=== PATIENT | female | born 1995 | race Caucasian/White ===

== ENCOUNTER 2016-04-13 03:03 | Emergency (ER) | payer OTHER ==
[~2016-04-13] VITALS: Ht 167.6 cm; Wt 65.9 kg
[2016-04-13 03:20] VITALS: Ht 167.6 cm; Wt 65.9 kg
[2016-04-13] MEDS ORDERED: LORAZEPAM 1 MG TAB PO ONE (03:30)
--- NOTE | 2016-04-13 03:30 | ERD ---
ER Documentation Chief Complaint Date/Time DATE: 04/13/16 TIME: 03:29 Chief Complaint brought in by ambulance for etoh. aox4 upon triage HPI 20-year-old woman brought in by EMS for intoxication while in an [employer] car. Patient had some nausea and vomiting while in the vehicle and admitted to drinking alcohol tonight. She denies alcoholism although states she does have a history of anxiety and depression and uses Paxil daily. She denies suicidal homicidal ideation. She denies fevers or chills, no chest pain or shortness of breath. Patient was transported here by EMS without further complications. ROS All systems reviewed and are negative except as per history of present illness. Allergies Allergies: Coded Allergies: No Known Allergies (Verified Allergy, Mild, 03/18/10) PMhx/Soc History of Surgery: No Anesthesia Reaction: No Hx Neurological Disorder: No Hx Respiratory Disorders: No Hx Cardiac Disorders: No Hx Psychiatric Problems: No Hx Miscellaneous Medical Probl: No Hx Alcohol Use: No Hx Substance Use: No Hx Tobacco Use: No Smoking Status: Never smoker FmHx Family History: No diabetes Physical Exam Vitals Vital Signs Date Time Temp Pulse Resp B/P Pulse Ox O2 Delivery O2 Flow Rate FiO2 04/13/16 03:20 97.8 85 16 119/79 98 Physical Exam GENERAL: Well-developed, well-nourished, appears intoxicated and anxious HEENT: Moist mucous membranes, pink conjunctiva, no cervical spine tenderness or step-off deformities, no goiter, no jaundice or icterus, extraocular movements intact without pain. No submandibular induration, and no pharyngeal erythema NEURO: Alert and oriented 3, cranial nerves II through XII intact bilaterally, pupils equal round reactive to light, no focal deficits or facial asymmetry, sensation intact distally Strength 5/5 in upper and lower extremities bilaterally CARDIAC: Regular rate and rhythm, no murmurs rubs or gallops LUNGS: Clear bilaterally no wheezing crackles or stridor ABDOMEN: Soft nontender, no guarding, no rigidity, no rebound, no psoas sign no obturator sign. Normoactive bowel sounds SKIN: Warm and dry to touch, no abrasions, contusions, or hematomas, no lacerations, no ecchymosis, no target lesions, and without ulcers EXTREMITIES: No clubbing cyanosis or edema, calves are bilaterally symmetrical, no Homans sign, no popliteal cord sign. Distal pulses equal and bilateral PSYCH: Anxious Results 24 hrs Current Medications Medications (Trade) Dose Ordered Sig/Sergio Route PRN Reason Start Time Stop Time Status Last Admin Dose Admin Lorazepam (Ativan) 1 mg ONCE ONCE PO 04/13/16 03:30 04/13/16 03:31 DC 04/13/16 03:32 Procedures/MDM I administered lorazepam 1 mg p.o. for her symptoms. She felt much better. Differential diagnoses considered, included but not limited to acute coronary syndrome, pulmonary embolism, aortic dissection, abdominal aortic aneurysm, sepsis, stroke, meningitis, encephalitis, pneumonia, appendicitis, cholecystitis , bowel obstruction, pyelonephritis, nephrolithiasis, cystitis, as well as metabolic, hematologic, and electrolyte abnormalities. As well as abscess, cellulitis, fractures, and dislocations. Patient feels much better at this time, and vital signs are normal, symptoms have improved. I did give strict instructions to return to the ED if symptoms continue or worsen, patient will otherwise follow-up with primary care physician. Patient understood instructions and agreed to plan. Departure Diagnosis: Primary Impression: Anxiety Additional Impression: Alcoholic intoxication Complication of substance-induced condition: uncomplicated Qualified Code: F10.120 - Alcoholic intoxication, uncomplicated Condition: Good Patient Instructions: Anxiety Reaction, Alcohol Intoxication CARLOS OCHOA MD Apr 13, 2016 03:30
[2016-04-13 05:45] VITALS: BP 103/62; PULSE 79; RESP 16; TEMP 97.8
== END 2016-04-13 06:10 | disposition home or self-care (01) ==
LOC: E/R 03:03
DX: F41.9 Anxiety disorder, unspecified (principal)
CPT/HCPCS: Z7502; Z7610; 99283